=== PATIENT | male | born 1950 | race Caucasian/White ===

== ENCOUNTER 2016-11-01 09:28 | Outpatient (CLI) | payer MEDICARE, BC ==
--- NOTE | 2016-11-01 22:55 | CT ---
CT OF THE PELVIS WITHOUT CONTRAST 11/01/[address] of the pelvis was done without oral or IV contrast for evaluation of right inguinal pain. Axial slices were acquired, then coronal and sagittal reconstructions were subsequently done. There are small fat filled inguinal hernias present bilaterally. One is not any bigger than the othe r and only fat is seen within them, no bowel. The visible portions of the lower anterior abdominal w all were unremarkable in appearance. The appendix was visualized and appears normal. A rare diverticulum is seen associated with the colo n, but there is no sign of diverticulitis or other inflammatory conditions. The prostate is enlarge measuring 6.4 cm in diameter and contains a calcification within it. Degenerative changes are present in the lower lumbar spine. A degenerated disc with some generalized bulging is seen at L5-S1 along with facet arthritis. There are similar findings at L4-5. IMPRESSION: 1. Small fat filled inguinal hernias bilaterally, neither of which are large or one bigger than the other. 2. Prostatic enlargement. 3. Other findings as listed above. POS: HOME
== END 2016-11-01 09:29 | disposition home or self-care (01) ==
LOC: BURCT 09:28
PROVIDERS: ATTEND Family Medicine
DX: R10.30 Lower abdominal pain, unspecified (principal); K40.90 Unilateral inguinal hernia, without obstruction or gangrene, not specified as recurrent; N40.0 Benign prostatic hyperplasia without lower urinary tract symptoms
CPT/HCPCS: 36415; 72192; 80053; 80061; 85025; G0103

== ENCOUNTER 2016-11-01 09:34 | Outpatient (CLI) | payer MEDICARE, BC ==
[2016-11-01 10:59] LABS: ALT (SGPT) 21 U/L (0-55); AST (SGOT) 16 U/L (5-34); Alkaline Phosphatase 86 U/L (40-150); Anion Gap 13 mmol/L (10-20); BUN (Urea Nitrogen) 12 mg/dL (8.4-25.7); Bilirubin, Total 0.6 mg/dL (0.2-1.2); Calc. Creatinine Clearance 0 mL/min (70-130); Calcium 9.1 mg/dL (7.8-10.44); Carbon Dioxide 26 mmol/L (23-31); Chloride 103 mmol/L (98-107); Estimated GFR-MDRD 68; Globulin 2.6 g/dL (2.4-3.5); LDL Cholesterol, Calculated 123 mg/dL; Protein, Total 6.9 g/dL (5.8-8.1)
[2016-11-01 11:58] LABS: #Basophils 0.1 thou/uL (0.0-0.2); #Eosinphils 0.2 thou/uL (0.0-0.7); #Lymphocytes 1.5 thou/uL (1.20-3.40); #Monocytes 0.7 thou/uL (0.11-0.59); #Neutrophils 3.2 thou/uL (1.40-6.50); %Basophils 1.4 % (0.0-1.0); %Eosinophils 3.1 % (0.0-10.0); %Monocytes 11.5 % (0.0-10.0); Hematocrit 41.9 % (42.0-52.0); Mean Platelet Volume 5.9 fL (7.4-10.4); Red Blood Cell (RBC) Count 4.56 mill/uL (4.70-6.10); White Blood Cell (WBC) Count 5.6 thou/uL (4.8-10.8)
== END 2016-11-01 09:35 ==
LOC: HPCALD 09:34
PROVIDERS: ATTEND Family Medicine
DX: Z12.5 Encounter for screening for malignant neoplasm of prostate (principal); Z13.6 Encounter for screening for cardiovascular disorders; I10 Essential (primary) hypertension
CPT/HCPCS: 36415; 80053; 80061; 85025; G0103

== ENCOUNTER 2017-08-18 10:32 | Outpatient (CLI) | payer MEDICARE, BC ==
--- NOTE | 2017-08-18 14:48 | RAD ---
LEFT RIBS: DATE: 08/18/17. FINDINGS: Multiple views show no definite acute fracture. There is no pneumothorax, pleural effusion, or focal left lung infiltrate. There might be a little irregularity at the anterior end of the left 8th rib; however, it appears likely old than new. IMPRESSION: Equivocal findings at the end of the left 8th rib. Exam otherwise negative. POS: HOME
== END 2017-08-18 10:33 | disposition home or self-care (01) ==
LOC: BURRAD 10:32
PROVIDERS: ATTEND Family Medicine
DX: R07.81 Pleurodynia (principal)

== ENCOUNTER 2019-08-13 07:46 | Outpatient (CLI) | payer MEDICARE, BC ==
[2019-08-13] MEDS ORDERED: Iopamidol 370 76% 100 ML VIAL ONE (16:30)
--- NOTE | 2019-08-13 17:12 | CT ---
CT ABDOMEN AND PELVIS WITH CONTRAST: 08/13/[address] of the abdomen and pelvis was done after giving both oral and IV contrast. Axial slices wer e acquired followed by coronal and sagittal reconstructions. The lung bases are clear. The liver was unremarkable except for a small subcentimeter cyst in the upp er posterior right lobe. It is of no concern. The pancreas was unremarkable. The gallbladder contains no signs of stones. The adrenal glands appear normal. A subcentimeter cyst is seen in the middle thi rd of the right kidney. No solid mass or hydronephrosis was seen in either. The aorta is rather tortu ous but has no aneurysm. CT of the pelvis shows no pelvic masses or fluid collections. The prostate is quite large measuring 6 cm in diameter. There is some slight thickening of the urinary bladder wall, although it is underdis tended which would contribute to it. The bowel shows no distention, wall thickening, or inflammatory change around it. A few scattered div erticula are seen in the colon, but there are truly minimal. The appendix appears normal. I see no ab normalities in the right inguinal region. Incidental finding is multilevel degenerative disc disease of the lower lumbar spine. There is probably at least some bulging of the L4-L5 and L5-S1 discs. IMPRESSION: 1. No acute abdominal or pelvic findings. 2. Marked prostatic enlargement. 3. Comparison with a 11/01/16 CT of the pelvis showed no remarkable changes in the region. POS: HOME
== END 2019-08-13 07:47 | disposition home or self-care (01) ==
LOC: BURCT 07:46
PROVIDERS: ATTEND Family Medicine
DX: R10.31 Right lower quadrant pain (principal); N40.0 Benign prostatic hyperplasia without lower urinary tract symptoms
CPT/HCPCS: 74177; Q9967

== ENCOUNTER 2021-02-17 10:14 | Outpatient (CLI) | payer MEDICARE, BC | END 2021-02-17 10:15 | disposition home or self-care (01) | LOC: BURCT 10:14 | PROVIDERS: ATTEND Family Medicine | DX: R10.30 Lower abdominal pain, unspecified (principal); N40.0 Benign prostatic hyperplasia without lower urinary tract symptoms; K57.30 Diverticulosis of large intestine without perforation or abscess without bleeding | CPT/HCPCS: 72192 ==